=== PATIENT | female | born 1940 | race African-American/Black ===

== ENCOUNTER 2018-02-14 15:47 | Inpatient (IN) | payer OTHER, BC ==
[~2018-02-14] VITALS: Ht 144.8 cm; Wt 52.2 kg
--- NOTE | ~2018-02-14 | HC ---
[facility] [place] [address] CONSULTATION Name: KATY PEDRO Room #: 205-P ADM IN M.R.#: [id number] Admission: 02/14/18 Attend Phys: Yaritza Hunt MD Discharge: Date of : 44 Report #: [id number] THIS REPORT FOR: //name// CC: Yaritza Hunt REASON FOR PRESENTATION: As told by her primary care physician. REASON FOR CONSULTATION: Chronic kidney disease. HISTORY OF PRESENT ILLNESS: A 77-year-old who started to see her primary care physician recently. She visited with her primary care physician to establish care for blood pressure. She tells me that she has been hypertensive for some time. She takes losartan. Apparently, she had been followed up in [facility] and was started on losartan. She had some pounding headache in the last few days and visited with Dr. Hutn. Labs were obtained. She was told that she has a high potassium, but she is not clear on the potassium level. She was admitted for further evaluation and management. In terms of medical problems, she tells me that she has been hypertensive for a few years. She also tells me that she had history of TIA in the past. She denies any history of heart events. She denies any awareness of chronic kidney disease in the past; however, she was told by her primary care physician in [facility] that she has mild kidney dysfunction. She could not elaborate more on this. She is not diabetic. On presentation to the Emergency Room yesterday, she was found to have an elevated blood pressure at 200/120. She was admitted for further evaluation and management. PAST MEDICAL HISTORY: 1. Hypertension. 2. TIA as she stated.. FAMILY HISTORY: All of her sisters have high blood pressure. 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 No drug or alcohol abuse. REVIEW OF SYSTEMS: GENERAL: No fever or chills. CARDIOVASCULAR: As per the history of present illness. PULMONARY: No cough or hemoptysis. GASTROINTESTINAL: No nausea or vomiting. GENITOURINARY: No frequency, no urgency. NEUROLOGICAL: As per the history of present illness. MEDICATIONS: Listed amongst her medications the followin. Hydrochlorothiazide. 2. Losartan. ALLERGIES: She tells me that she has allergy to some medication, but she is not [facility] [address] [address] CONSULTATION Name: KATY PEDRO Room #: 205-P [facility] IN .R.#: [id number] Admission: 02/14/18 Attend Phys: Yaritza Hunt MD Discharge: Date of : 44 Report #: [id number] able to verify those medications for me. However, listed amongst her allergies in the hospital here that she has no known allergies: PHYSICAL EXAMINATION: GENERAL: She is alert, oriented, somewhat sluggish. VITAL SIGNS: Blood pressure is 155/96, temperature 37.2. HEAD AND NECK: No jugular venous distention. CHEST: No crackles. CARDIOVASCULAR: No rub detected. ABDOMEN: Soft, nontender. LOWER EXTREMITIES: No edema. LABORATORY DATA: Reviewed. Sodium 136, potassium 3.3, BUN is 25, creatinine is 2.0 post-Toradol injection. ASSESSMENT, IMPRESSION AND PLAN: 1. Acute kidney injury. 2. Hypertensive urgency. 3. Hypokalemia. 4. We will send all appropriate workup for her chronic kidney disease, acute kidney injury and evaluate urine studies along with the ultrasound. She did receive a dose of Toradol, which contributed to the rise in the creatinine. Also, expect that her creatinine will go up with the precipitous drop in her blood pressure. 5. Replace potassium. 6. [place] blood pressure medications for her should be a thiazide diuretic, angiotensin converting enzyme inhibitor or angiotensin receptor jennifer, if needed, we could add a calcium channel jennifer, Aldactone down the road given her hypokalemia. 7. Low salt diet addressed with the patient. <ELECTRONICALLY SIGNED> By: Sergio Mayberry MD 02/16/18 1553 [id number] Sergio Mayberry MD /nt
--- NOTE | ~2018-02-14 | D ---
[facility] [place] [address] DISCHARGE SUMMARY Name: KATY PEDRO Room #: 205-P [facility] IN M.R.#: [id number] Admission: 02/14/18 Attend Phys: Yaritza Hunt MD Discharge: 02/16/18 Date of : 44 Report #: [id number] THIS REPORT FOR: //name// CC: Yaritza Hunt FINAL DIAGNOSES: 1. Hypertensive urgency. 2. Acute kidney injury. 3. Hypokalemia. 4. Hypertension. 5. Mild protein-calorie malnutrition. HOSPITAL COURSE: The patient was admitted with headache, weakness and elevated blood pressure. There was concern from office labs to have elevated potassium, but her potassium levels in the ER and on followup actually were a little bit on the low end. She received some oral supplementation. Blood pressure regimen was adjusted with Coreg and amlodipine and she had much better control. She had no neurologic symptoms or process during her stay and CT head was negative. Dr. Roe saw her from the renal service, but did not have any other new recommendations at this point. PHYSICAL EXAMINATION: VITAL SIGNS: On the day of discharge her temperature 36.6, pulse 57, respirations 18, blood pressure 135/82 and O2 sat 98% on room air. LUNGS: Clear. HEART: Regular. ABDOMEN: Soft, normoactive bowel sounds. EXTREMITIES: Showed no edema. NEUROLOGICAL: She was intact. LABORATORY DATA: Potassium was 4.3 with a creatinine of 1.7. DISPOSITION: She will be discharged home with diet and activity as tolerated. Follow up with Dr. Hunt in 1 week. DISCHARGE MEDICATIONS: Tylenol, aspirin 81 mg, Coreg 25 mg b.i.d., Norvasc 5 mg. <ELECTRONICALLY SIGNED> By: Curly Mccarthy MD 02/17/18 1057 1451 1742 Curly Mccarthy MD /nt
--- NOTE | ~2018-02-14 | H ---
[facility] [place] [address] HISTORY AND PHYSICAL Name: KATY PEDRO Room #: 205-P ADM IN M.R.#: [id number] Admission: 02/14/18 Attend Phys: Yaritza Hunt MD Discharge: Date of : 44 Report #: [id number] THIS REPORT FOR: //name// CC: Yaritza Hunt DATE OF SERVICE: 02/14/2018 CHIEF COMPLAINT: Hypertension. HISTORY OF PRESENT ILLNESS: The patient is a 77-year-old female who was sent to the Emergency Room for evaluation of high blood pressure and abnormal labs. Dr. Hunt contacted her yesterday with lab work from the office revealing an elevated potassium level and she was directed to the ER. She has been recently started in December of this year on losartan, but said her blood pressure was still high. She had some headache and shortness of breath yesterday, but denies any weakness. Workup in the ER revealed slightly high creatinine, low potassium and a normal CT of the head. PAST MEDICAL HISTORY: Hypertension. PAST SURGICAL HISTORY: Unknown. FAMILY HISTORY: Noncontributory. 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 Denies chronic alcohol or tobacco use. ALLERGIES: No known drug allergies. MEDICATIONS: Hydrochlorothiazide 12.5 mg, losartan 25 mg, lisinopril 5 mg. REVIEW OF SYSTEMS: She denies headache, chest pain, shortness of breath, abdominal pain, nausea, vomiting, diarrhea, constipation, dysuria, syncope. OBJECTIVE: VITAL SIGNS: Temperature 37.2, pulse 73, respirations 18, blood pressure 155/96, O2 sat 100% on room air. GENERAL: She is awake and alert, in no distress. HEAD AND NECK: Unremarkable. LUNGS: Clear. HEART: Regular. ABDOMEN: Soft, normoactive bowel sounds. EXTREMITIES: No edema. NEUROLOGIC: Cranial nerves intact. Strength intact. She is alert and oriented. No focal deficits. [facility] [address] [place] [address] HISTORY AND PHYSICAL Name: KATY PEDRO Room #: [address] [place] [address] [place] [facility]#: [id number] Admission: 02/14/18 Attend Phys: Yaritza Hunt MD Discharge: Date of : 44 Report #: [id number] LABORATORY DATA: Creatinine is 2, potassium 3.3. ASSESSMENT: 1. Hypertensive urgency. 2. Acute kidney injury. 3. Hypokalemia. PLAN: Gentle potassium supplementation, added a beta-jennifer and calcium channel jennifer for now for blood pressure control and she is much improved overnight. We will leave off the MAIKOL inhibitor and diuretic until her creatinine stabilizes, but may reconsider the addition of hydrochlorothiazide. <ELECTRONICALLY SIGNED> By: Curly Mccarthy MD 02/16/18 1427 0829 0846 Curly Mccarthy MD /nt
--- NOTE | ~2018-02-14 | EKG ---
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
[2018-02-14 15:48] VITALS: BP 207/124
[2018-02-14] MEDS ORDERED: HYDROCHLOROTH12.5 M1 PO (15:53)
[2018-02-14] MEDS ORDERED: LOSARTAN POTASS50 MG PO (15:54)
[2018-02-14] MEDS ORDERED: LISINOPRIL5 MG PO (15:54)
[2018-02-14 16:12] LABS: HEMATOCRIT 39.6 % (37.0-47.0); HEMOGLOBIN 13.6 gm/dL (12.0-15.0); MCH 32.7 pg (26.0-34.0); MCHC 34.3 g/dL (28.0-37.0); MCV 95.4 fL (80.0-100.0); RBC 4.15 mil/uL (4.20-5.00); RDW 15.3 % (10.5-14.5); WBC 6.8 thou/uL (4.0-11.0)
[2018-02-14 16:16] LABS: CREATININE 1.6 mg/dL (0.6-1.0); POTASSIUM 3.2 mmol/L (3.5-5.1)
[2018-02-14 16:22] LABS: ALBUMIN 3.6 g/dL (3.4-5.0); TOTAL BILIRUBIN 0.7 mg/dL (<0.1-1.0)
[2018-02-14 16:29] LABS: ABSOLUTE NEUTROPHILS 4.3 thou/uL (1.4-8.2)
[2018-02-14 16:30] LABS: LARGE PLATELETS RARE; PLATELET COUNT 121 thou/uL (150-400)
[2018-02-14 18:29] VITALS: BP 201/132
[2018-02-14 19:06] VITALS: BP 192/106
[2018-02-15 00:16] VITALS: BP 145/95
[2018-02-15 03:29] LABS: CALCIUM 8.9 mg/dL (8.5-10.1); POTASSIUM 3.3 mmol/L (3.5-5.1)
[2018-02-15 04:28] VITALS: BP 155/96
[2018-02-15 07:30] VITALS: BP 150/88
[2018-02-15 11:45] VITALS: BP 145/104
[2018-02-15 14:17] LABS: URINE BILIRUBIN NEGATIVE (Negative); URINE BLOOD NEGATIVE (Negative); URINE CLARITY CLEAR; URINE COLOR YELLOW; URINE GLUCOSE-RANDOM* NEGATIVE (Negative); URINE KETONES NEGATIVE (Negative); URINE LEUKOCYTES 1+ (Negative); URINE NITRITE NEGATIVE (Negative); URINE PROTEIN (DIPSTICK) NEGATIVE (Negative); URINE UROBILINOGEN 0.2 E.U./dl (0.2-1.0)
[2018-02-15 14:37] LABS: CASTS None Seen /LPF (None Seen); CRYSTALS None Seen /LPF (None Seen); SQUAMOUS 0-3 Few /LPF (0-3)
[2018-02-15 14:38] LABS: URINE RBC None Seen /HPF (0-2); URINE WBC 0-5 Rare /HPF (0-5)
[2018-02-15 14:39] LABS: BACTERIA 1-9 Few /HPF (None Seen)
[2018-02-15 15:45] VITALS: BP 151/81
[2018-02-15 19:38] VITALS: BP 124/73
[2018-02-16 00:34] VITALS: BP 150/86
[2018-02-16 03:46] LABS: ALBUMIN 2.8 g/dL (3.4-5.0); CALCIUM 9.5 mg/dL (8.5-10.1); CREATININE 1.7 mg/dL (0.6-1.0); PHOSPHORUS 4.7 mg/dL (2.5-4.9); POTASSIUM 4.3 mmol/L (3.5-5.1)
[2018-02-16 04:39] VITALS: BP 139/90
[2018-02-16 07:45] VITALS: BP 146/86
[2018-02-16 12:00] VITALS: BP 135/82
[2018-02-16] MEDS ORDERED: CARVEDILOL25 MG PO (14:47)
[2018-02-16] MEDS ORDERED: AMLODIPINE BESYL5 M1 PO (14:47)
[2018-02-16] MEDS ORDERED: ASPIR 8181 MG PO (14:48)
[2018-02-16 15:44] VITALS: BP 135/82
[2018-02-16 16:00] VITALS: BP 126/82
== END 2018-02-16 18:26 | disposition home or self-care (01) | DRG 640 ==
LOC: ER 15:47 → EROBS 18:16 → 2N 18:16
PROVIDERS: Hospitalist; Internal Medicine Geriatric Medicine; Nurse Practitioner Family
DX: E87.6 Hypokalemia (principal); N17.0 Acute kidney failure with tubular necrosis; E44.0 Moderate protein-calorie malnutrition; I16.0 Hypertensive urgency; F41.9 Anxiety disorder, unspecified; D69.6 Thrombocytopenia, unspecified; Z68.24 Body mass index [BMI] 24.0-24.9, adult; Z86.73 Personal history of transient ischemic attack (TIA), and cerebral infarction without residual deficits; Z79.899 Other long term (current) drug therapy
CPT/HCPCS: 10797